=== PATIENT | female | born 1990 | race Two or more races ===

== ENCOUNTER 2018-12-15 16:07 | Emergency (ER) | payer MEDICAID, OTHER ==
[~2018-12-15] VITALS: Ht 157.5 cm; Wt 90.9 kg
[~2018-12-15 16:07] MED LIST: METO5TAB85 PO; NO HOME MEDS; PERM60CR4 TP
[2018-12-15 16:59] VITALS: BP 152/93
== END 2018-12-15 17:16 | disposition home or self-care (01) ==
LOC: ER 16:07
DX: Z00.8 Encounter for other general examination (principal); Z98.890 Other specified postprocedural states
CPT/HCPCS: 99281

== ENCOUNTER 2022-08-18 10:46 | Emergency (ER) | payer MEDICAID ==
[~2022-08-18] VITALS: Ht 157.5 cm; Wt 113.0 kg
[2022-08-18 12:21] LABS: BASOPHILS % (AUTO) 0.2 % (0-1); EOSINOPHILS # (AUTO) 0.1 X10'3 (0-0.9); EOSINOPHILS % (AUTO) 0.9 % (0-6); HEMATOCRIT 36.1 % (35.0-45.0); HEMOGLOBIN 12.1 g/dl (12.0-16.0); LYMPHOCYTES # (AUTO) 1.5 X10'3 (1.1-4.8); LYMPHOCYTES % (AUTO) 16.8 % (21-51); MEAN CORPUSCULAR HEMOGLOBIN 29.4 PG (27.0-31.0); MEAN CORPUSCULAR HGB CONC 33.4 g/dL (33.0-36.5); MEAN CORPUSCULAR VOLUME 88.1 FL (78-98); MEAN PLATELET VOLUME 7.6 FL (7.4-10.4); MONOCYTES # (AUTO) 0.6 X10'3 (0-0.9); MONOCYTES % (AUTO) 6.9 % (2-12); NEUTROPHILS # (AUTO) 6.5 X10'3 (1.8-7.7); NEUTROPHILS % (AUTO) 75.2 % (42-75); PLATELET COUNT 264 X10'3 (140-440); RED CELL DISTRIBUTION WIDTH 13.7 % (11.5-14.5); WHITE BLOOD COUNT 8.7 X10'3 (4.5-11.0)
[2022-08-18 13:55] VITALS: BP 128/90
== END 2022-08-18 15:11 | disposition home or self-care (01) ==
LOC: ER 10:47
DX: N94.6 Dysmenorrhea, unspecified (principal); N93.9 Abnormal uterine and vaginal bleeding, unspecified; Z98.890 Other specified postprocedural states; Z98.51 Tubal ligation status
CPT/HCPCS: 36415; 85025; 99284

== ENCOUNTER 2024-10-03 12:16 | Emergency (ER) | payer MEDICAID ==
[~2024-10-03] VITALS: Ht 157.5 cm; Wt 140.7 kg
[2024-10-03 12:25] VITALS: BP 157/97; PULSE 102; RESP 16; TEMP 98.6; O2SAT 97
== END 2024-10-03 13:43 | disposition left against medical advice (07) ==
LOC: ER 12:17
DX: L02.419 Cutaneous abscess of limb, unspecified (principal); Z53.21 Procedure and treatment not carried out due to patient leaving prior to being seen by health care provider